=== PATIENT | male | born 1955 | race Caucasian/White ===

== ENCOUNTER → 2022-04-02 | Outpatient (CLI) | payer MEDICARE, BC | LOC: KOH-I 12:42 | DX: S92.252A Displaced fracture of navicular [scaphoid] of left foot, initial encounter for closed fracture (principal); M19.072 Primary osteoarthritis, left ankle and foot | CPT/HCPCS: 73630 ==

== ENCOUNTER → 2022-05-14 | Outpatient (CLI) | payer MEDICARE, BC | LOC: KOH-I 08:54 | DX: S92.252K Displaced fracture of navicular [scaphoid] of left foot, subsequent encounter for fracture with nonunion (principal); M19.072 Primary osteoarthritis, left ankle and foot | CPT/HCPCS: 73630 ==

== ENCOUNTER → 2022-06-15 | Outpatient (CLI) | payer MEDICARE, BC | LOC: KOH-I 09:31 | DX: S92.252K Displaced fracture of navicular [scaphoid] of left foot, subsequent encounter for fracture with nonunion (principal); M19.072 Primary osteoarthritis, left ankle and foot | CPT/HCPCS: 73630 ==